=== PATIENT | male | born 1970 | race Caucasian/White ===

== ENCOUNTER 2024-09-07 06:20 | Emergency (ER) | payer BC, SELFPAY ==
[2024-09-07 06:22] VITALS: BP 143/78
[2024-09-07 07:00] VITALS: BP 128/76
[2024-09-07 07:01] VITALS: BMI 33.9
--- NOTE | 2024-09-07 07:01 | ED.GENMED ---
History of Present Illness
General
Chief Complaint: Swelling
Source: patient
Exam Limitations: none
Time Seen by Provider: 09/07/24 06:48
History of Present Illness
History of Present Illness:
See MDM
Past History
Past History
ED Past Medical History: Arrthythmia (afib), CVA (about 4 years ago after mini maze procedure for a fib. Had slurred speech and right sided weakness. No residual symptoms.), HTN, Hypercholesterolemia and Other (DVT)
ED Past Surgical History: Tonsilectomy
Social History
Tobacco: Non-smoker
Alcohol: None
Drug: None
Personal:
Living: with family
Employment: Employed
Family History
Family History: Other (adopted)
Phy Exam
Physical Exam
Physical Exam:
See MDM
Scores
Heart Failure Risk
Heart Failure Risk Score: Not Applicable
Sepsis
Sepsis Screening
Sepsis Assessment: Sepsis Ruled Out
Sepsis Screen
Sepsis Screen: Sepsis Ruled Out
Date: 09/07/24
Time: 08:16
Course
Orders/Labs/Results
Orders:
Orders
09/07/24 06:38
COVID-19 Antigen Urgent
Source: Nasal Swab
Influenza A+B Rapid Molecular Urgent
KRYSTAL Source: Nasal Swab
Specimen Description:
CXR2 [CR Chest - 2 Views ] Urgent
Comment:
Reason For Exam: cough
09/07/24 06:55
Complete Blood Count/With Diff Urgent
Comprehensive Metabolic Panel Urgent
NT-proBNP Urgent
Troponin I Urgent
Comment: ADD ON
09/07/24 06:58
Add On- LAB Urgent
Tests Added?: troponin
Dexamethasone Sod Phosphate [Decadron] 10 mg IV NOW STA
Ipratropium/Albuterol Sulfate [Duoneb] 3 ml INH R NOW STA
09/07/24 07:06
Electrocardiogram (*1) Urgent
Reason for Study: Shortness of Breath
EKG- Treatment ONCE
Abnormal Lab Results
09/07/24
06:55
WBC 4.4 L 10^3/uL
(4.8-10.8)
RBC 4.62 L 10^6/uL
(4.70-6.10)
MCV 96.3 H fL
(80.0-94.0)
MCH 32.3 H pg
(27.0-31.0)
RDW 15.0 H %
(11.5-14.5)
MPV 10.7 H fL
(7.4-10.4)
Absolute Lymphs (auto) 1.0 L 10^3/uL
(1.2-3.4)
Monocytes % 13.5 H %
(1.7-9.3)
Glucose 119 H mg/dl
(70-99)
Total Bilirubin 1.7 H mg/dl
(0.2-1.3)
09/07/24 06:55
09/07/24 06:55
Vital Signs
Initial and Last Documented VS:
Initial Vital Signs
Temp Pulse Resp BP Pulse Ox
99.7 F 93 24 143/78 96
09/07/24 06:22 09/07/24 06:22 09/07/24 06:22 09/07/24 06:22 09/07/24 06:22
Last Documented Vital Signs
Temp Pulse Resp BP Pulse Ox
98.9 F 88 21 143/78 96
09/07/24 07:06 09/07/24 07:06 09/07/24 07:06 09/07/24 06:22 09/07/24 07:06
MDM/Problems Addressed
Differential Diagnosis Includes:
HPI and MDM Narrative:
54-year-old male presenting for evaluation of persistent cough. Symptoms occurred 2 weeks ago and he finished a course of antibiotics. He seemed to get sick again and PCP believes this could be viral. However, patient is now noticing leg
swelling. He has very mild pitting edema to both legs but he states is somewhat chronic. There is no exertional component but he does seem to get worse when he lays flat. He does have evidence of bronchospasm. Will give DuoNeb and Decadron.
Given the edema and positional's, will obtain troponin BNP. Viral testing obtained. Will obtain chest x-ray.
Patient is on Coumadin so I do doubt DVT or PE
Patient states he is chronically in A-fib
His pitting edema is very mild. He recently has been sleeping in a recliner which could explain his edema
Physical exam
General: Well appearing and non-toxic
HEENT: protecting airway
Neck: appears supple
CV: No evidence of cyanosis. Irregular rhythm
Resp: No accessory muscle use. Bronchospasm noted. Lungs otherwise clear
Abd: Non-distended
Extremities: Varicose veins to both legs. Very mild pitting edema to bilateral lower extremities
Neuro: alert
Psych: Normal affect
Skin: Intact
Problems Addressed including Acute and Chronic Conditions affecting care:
1. Shortness of breath and bronchospasm
Acuity: acute
Prognosis: stable
Details: Will give DuoNeb and IV steroids. Will obtain chest x-ray
2. Leg edema
Acuity: acute
Prognosis: stable
Details: Appears to be somewhat chronic. Will obtain troponin and BNP
Updates
Patient found to have influenza. He is out of the Tamiflu window. He is feeling better after breathing treatment and steroids. Chest x-ray clear in regards to pulmonary edema and pneumonia. However, I did notice a enlarged cardiac silhouette.
This appears unchanged when compared to his prior chest x-ray. His BNP is mildly elevated but there is no comparison. Will place on cardiac callback tracker
Differential Diagnosis (but not limited to): CHF, pneumonia, viral syndrome
Testing considered: D-dimer but he is anticoagulated
Drug therapy (if applicable): OTC meds, please see d/c instruction regarding Rx drugs
Amount and/or Complexity of Data Reviewed
Clinical info obtained from: Patient
External data reviewed: N/A
Labs I independently reviewed (but not limited to): Troponin normal, elevated BNP
Radiology: X-ray independently reviewed: Chest x-ray clear
Pulse Ox: not hypoxic
EKG independently reviewed: A-fib, normal axis, no STEMI, right bundle branch block
Hat Block Maker: A-fib
Critical Care: N/A
Risk of Complication:
Social Determinants of health: Good social support
Discussed with other providers: N/A
Escalation of Care includes Admit/Obs: After being observed in the Emergency Department, pt stable for discharge.
Occasional wrong word or 'sound a like' substitutions may have occurred due to the inherent limitations of voice recognition software. Read the chart carefully and recognize, using context, where substitutions have occurred.
*Critical Care Note
Total Time (30-74mins, 75-104mins- exclusive of procedures): Not Applicable
ED Attending Note
-
Portions of this chart may have been created with voice recognition software.� Occasional wrong word or��sound alike� substitutions may have occurred due to the inherent limitations of voice recognition software.
Discharge Plan
Departure
Patient Disposition: Home (Routine Discharge)
Date of Disposition: 09/07/24
Time of Disposition: 07:52
Patient with high blood pressure during this ER visit?: Yes
Discharge Problem:
Influenza A
Instructions: *[facility] Heart Failure Instructions, BLOOD PRESSURE
Prescriptions:
New
prednisone 20 mg tablet
40 mg PO DAILY Qty: 10 0RF
albuterol sulfate 90 mcg/actuation HFA aerosol inhaler
2 puff inhalation Q6H PRN (Reason: shortness of breath or wheezing) Qty: 8.5 0RF
No Action
metoprolol succinate 50 MG tablet extended release 24 hr
75 mg PO BID
digoxin 0.125 MG tablet
0.125 mg PO DAILY
Acetaminophen
1,000 mg PO Q6H PRN (Reason: pain)
celecoxib 200 mg Capsule
200 mg PO DAILY
coQ10 (ubiquinol) [Qunol Reilly CoQ10] 100 mg Capsule
200 mg PO DAILY
Eliquis 5 mg Tablet
5 mg PO BID
Glucosamine Chondroitin 550-30-1 mg Capsule
1 cap PO DAILY
Referrals:
Jonh Palafox DO [Family Provider] -
Activity Restrictions/Additional Instructions:
Please return for any worsening symptoms.
You may return at any time if you have further concerns.
Please follow up with your doctor at the first available appointment, preferably this week.
You were placed on the cardiac callback tracker. Someone from their office should call you in the next few days. If you do not hear from them in the next few days, please give them a call.
Thank you for choosing [facility].
Interventions
Interventions:
*Risk Screen - Suicide Last Done: 09/07/24 06:22
*General Assessment Last Done: 09/07/24 07:06
*Neglect/Abuse Screening Last Done: 09/07/24 07:06
*ED- Fall Risk Assessment Last Done: 09/07/24 07:06
*ED COVID-19 Vaccine History Last Done: 09/07/24 07:06
ED- Cardiac Assessment Last Done: 09/07/24 07:06
ED- Pulmonary Assessment Last Done: 09/07/24 07:06
ED-Skin Assessment Last Done: 09/07/24 07:06
Discharge Date and Time
Print Language: KAZAKH
[2024-09-07] MEDS: DUONEB 3 ML INH (07:11)
[2024-09-07] MEDS: DECADRON 10 MG IV (07:11)
[2024-09-07 07:12] LABS: % Basophils 0.5 % (0-2); % Eosinophils 0.7 % (0-6); % Immature Granulocytes 0.2 % (0-0.5); % Lymphocytes 23.7 % (20.5-51.1); % Monocytes 13.5 % (1.7-9.3); % Neutrophils 61.4 % (42.2-75.2); Absolute Monocytes 0.6 10^3/uL (0.1-0.6); Absolute Neutrophils 2.7 10^3/uL (1.4-6.5); Hematocrit 44.5 % (39.0-52.0); Hemoglobin 14.9 g/dL (13.0-18.0); Mean Corp Hgb Conc. 33.5 g/dL (33.0-37.0); Mean Corpuscular Hgb 32.3 pg (27.0-31.0); Mean Corpuscular Volume 96.3 fL (80.0-94.0); Mean Platelet Volume 10.7 fL (7.4-10.4); Nucleated Red Blood Cells % 0 % (-); Platelet Count 148 10^3/uL (130-400); Red Blood Cell Count 4.62 10^6/uL (4.70-6.10); White Blood Cell Count 4.4 10^3/uL (4.8-10.8)
[2024-09-07 07:17] LABS: ALT (SGPT) 39 U/L (0-50); AST (SGOT) 29 U/L (17-59); Albumin 4.2 g/dl (3.5-5.0); Alkaline Phosphatase 77 U/L (38-126); Blood Urea Nitrogen 18 mg/dl (9-20); Calcium 9.3 mg/dl (8.4-10.2); Carbon Dioxide 27 mmol/L (22-30); Chloride 102 mmol/L (98-107); Estimated Creatinine Clearance > 125 ml/min; Glucose 119 mg/dl (70-99); Potassium 4.6 mmol/L (3.5-5.1); Sodium 135 mmol/L (135-145); Total Bilirubin 1.7 mg/dl (0.2-1.3); Total Protein 6.8 g/dl (6.3-8.2); eGFR > 60.00
[2024-09-07 07:18] LABS: COVID-19 Antigen Negative (Negative)
[2024-09-07 07:28] LABS: NT-proBNP 1200 pg/ml; Troponin I < 0.012 ng/ml
[2024-09-07 07:30] VITALS: BP 123/73
[2024-09-07 08:00] VITALS: BP 115/81
[2024-09-07 08:48] VITALS: BP 115/81
== END 2024-09-07 08:50 | disposition home or self-care (01) ==
LOC: EMR 06:20
PROVIDERS: Emergency Medicine; EMERGENCY PHYSICIAN Student in an Organized Health Care Education/Training Program; FAMILY PHYSICIAN Internal Medicine
DX: J10.1 Influenza due to other identified influenza virus with other respiratory manifestations (principal); I48.91 Unspecified atrial fibrillation; I10 Essential (primary) hypertension; E78.00 Pure hypercholesterolemia, unspecified; Z86.718 Personal history of other venous thrombosis and embolism; Z86.73 Personal history of transient ischemic attack (TIA), and cerebral infarction without residual deficits
CPT/HCPCS: 99283; 94640; 96374; 71046; 80053; 83880; 84484; 85025; 87502; 87811; 93005

== ENCOUNTER 2024-09-11 10:50 | Emergency (ER) | payer BC, SELFPAY ==
[2024-09-11 10:59] VITALS: BP 136/85
--- NOTE | 2024-09-11 11:43 | ED.GENMED ---
History of Present Illness
General
Chief Complaint: Cold/Flu/URI Symptoms
Source: patient
Exam Limitations: none
Time Seen by Provider: 09/11/24 11:40
Nursing documentation reviewed up to this point in time: agreed with
History of Present Illness
History of Present Illness:
54 yo male w h/o Arrhythmia (afib), CVA (about 4 years ago after mini maze procedure for a fib. Had slurred speech and right sided weakness. No residual symptoms.), HTN, Hypercholesterolemia and Other (DVT), diagnosed here 4 days ago with Flu. Had
negative CXR at that time. Is here for persistent significant cough. Denies fever, CP, SOB. Has finished [id number] days a week ago wit no improvement. Cough keeping him up at night
Past History
Past History
ED Past Medical History: Arrthythmia (afib), CVA (about 4 years ago after mini maze procedure for a fib. Had slurred speech and right sided weakness. No residual symptoms.), HTN, Hypercholesterolemia and Other (DVT)
ED Past Surgical History: Tonsilectomy
Social History
Tobacco: Non-smoker
Alcohol: None
Drug: None
Personal:
Living: with family
Employment: Employed
Family History
Family History: Other (adopted)
Review of Systems
Review of Systems
Allergies reviewed?: Yes
All Other Systems: ROS reviewed and negative except as documented in HPI and ROS
Constitutional: Denies fever
EENT: Denies sore throat
Respiratory: Reports cough (persistent paroxysms of cough)
Cardiac: Denies chest pain
ABD/GI: Denies abdominal pain, nausea, vomiting or diarrhea
Musculoskeletal: Reports no symptoms
Skin: Reports no symptoms
Neurological: Reports no symptoms
Phy Exam
Physical Exam
Physical Exam:
GENERAL: No acute distress. A&Ox3.
CONSTITUTIONAL: Afebrile.
RESPIRATORY: Regular respirations, nonlabored, lungs clear. Frequent intermittent coughing spells
CARDIOVASCULAR: Regular rate and rhythm, no murmurs, no rubs.
MUSCULOSKELETAL: Moves with ease. Well perfused.
SKIN: Warm, dry, pink
PSYCH: Normal mood and affect. Well kept, interactive and appropriate
NEUROLOGIC: Awake, alert and oriented. No focal neurological deficits
Course
Vital Signs
Initial and Last Documented VS:
Initial Vital Signs
Temp Pulse Resp BP Pulse Ox
98.3 F 73 20 136/85 98
09/11/24 10:59 09/11/24 10:59 09/11/24 10:59 09/11/24 10:59 09/11/24 10:59
Last Documented Vital Signs
Temp Pulse Resp BP Pulse Ox
98.3 F 73 20 136/85 98
09/11/24 10:59 09/11/24 10:59 09/11/24 10:59 09/11/24 10:59 09/11/24 10:59
MDM/Problems Addressed
Differential Diagnosis Includes:
PNA, URI
MDM/Problems Addressed:
54 yo male w h/o Arrhythmia (afib), CVA (about 4 years ago after mini maze procedure for a fib. Had slurred speech and right sided weakness. No residual symptoms.), HTN, Hypercholesterolemia and Other (DVT), diagnosed here 4 days ago with Flu. Had
negative CXR at that time. Is here for persistent significant cough. Denies fever, CP, SOB. Has finished [id number] days a week ago wit no improvement. Cough keeping him up at night
Neg CXR 4 days ago, no need to repeat
Will give Doxycycline for atypical PNA
*Critical Care Note
Total Time (30-74mins, 75-104mins- exclusive of procedures): Not Applicable
ED Attending Note
-
Portions of this chart may have been created with voice recognition software.� Occasional wrong word or��sound alike� substitutions may have occurred due to the inherent limitations of voice recognition software.
Discharge Plan
Departure
Patient Disposition: Home (Routine Discharge)
Date of Disposition: 09/11/24
Time of Disposition: 11:53
Patient with high blood pressure during this ER visit?: No
Condition: Good
Discharge Problem:
Cough in adult, Acute bronchitis
Instructions: Acute Bronchitis, Adult (DC), Cough in adults - ED discharge instructions
Prescriptions:
New
doxycycline hyclate 100 mg capsule
100 mg PO BID Qty: 20 0RF
No Action
metoprolol succinate 50 MG tablet extended release 24 hr
75 mg PO BID
digoxin 0.125 MG tablet
0.125 mg PO DAILY
Acetaminophen
1,000 mg PO Q6H PRN (Reason: pain)
celecoxib 200 mg Capsule
200 mg PO DAILY
coQ10 (ubiquinol) [Qunol Reilly CoQ10] 100 mg Capsule
200 mg PO DAILY
Eliquis 5 mg Tablet
5 mg PO BID
Glucosamine Chondroitin 550-30-1 mg Capsule
1 cap PO DAILY
prednisone 20 mg tablet
40 mg PO DAILY Qty: 10 0RF
albuterol sulfate 90 mcg/actuation HFA aerosol inhaler
2 puff inhalation Q6H PRN (Reason: shortness of breath or wheezing) Qty: 8.5 0RF
codeine-guaifenesin 10-100 mg/5 mL liquid
10 ml PO BID PRN (Reason: Cough) Qty: 200 0RF
Referrals:
Jonh Palafox, DO [Family Provider] - As needed
Activity Restrictions/Additional Instructions:
As we discussed, I am treating you for 'atypical pneumonia.'
Since you are already finished a regimen of Augmentin, I sent a prescription to your pharmacy for doxycycline to take 100 mg twice a day for 10 days.
Espinoza's mentholated cough drops may also help for the cough
Interventions
Interventions:
*Risk Screen - Suicide Last Done: 09/11/24 10:59
*General Assessment Last Done: 09/11/24 10:59
*Neglect/Abuse Screening Last Done: 09/11/24 10:59
*Nursing Disposition Last Done: 09/11/24 12:17
ED- Pulmonary Assessment Last Done: 09/11/24 12:13
Discharge Date and Time
Discharge Date/Time: 09/11/24 12:17
Print Language: AZERI
== END 2024-09-11 12:17 | disposition home or self-care (01) ==
LOC: EMR 10:50
PROVIDERS: EMERGENCY PHYSICIAN Emergency Medicine; FAMILY PHYSICIAN Internal Medicine
DX: J20.9 Acute bronchitis, unspecified (principal); E78.00 Pure hypercholesterolemia, unspecified; I10 Essential (primary) hypertension; I48.91 Unspecified atrial fibrillation; Z86.718 Personal history of other venous thrombosis and embolism; Z86.73 Personal history of transient ischemic attack (TIA), and cerebral infarction without residual deficits
CPT/HCPCS: 99283

== ENCOUNTER 2025-03-18 04:47 | Emergency (ER) | payer BC, SELFPAY ==
[2025-03-18 04:54] VITALS: BP 134/88
[2025-03-18 05:04] VITALS: BMI 33.5
[2025-03-18 05:27] LABS: COVID-19 Antigen Negative (Negative)
--- NOTE | 2025-03-18 06:13 | ED.GENMED ---
History of Present Illness
<Brandon Hart MD, Resident - Last Filed: 03/18/25 06:40>
General
Chief Complaint: Cold/Flu/URI Symptoms
Time Seen by Provider: 03/18/25 06:00
History of Present Illness
History of Present Illness:
Patient is a 55-year-old male who presents to the emergency department with cough, wheezing in lungs, and difficulty getting a full breath for the past 6 to 7 days. He has a history of atrial fibrillation and is anticoagulated on Eliquis. The
patient has been stable and contending with the symptoms for the past 7 days but unfortunately his appears to have contracted a very similar illness which has prompted him to present to the emergency department for further evaluation.
Currently has cough and wheezing in the lungs but he does not have any shortness of breath or dizziness. Patient denies any nausea vomiting or diarrhea. Patient is nontoxic-appearing.
Past History
<Brandon Hart MD, Resident - Last Filed: 03/18/25 06:40>
Past History
ED Past Medical History: Arrthythmia (afib), CVA (about 4 years ago after mini maze procedure for a fib. Had slurred speech and right sided weakness. No residual symptoms.), HTN, Hypercholesterolemia and Other (DVT)
ED Past Surgical History: Tonsilectomy
Social History
Tobacco: Non-smoker
Alcohol: None
Drug: None
Personal:
Living: with family
Employment: Employed
Family History
Family History: Other (adopted)
Review of Systems
<Brandon Hart MD, Resident - Last Filed: 03/18/25 06:40>
Review of Systems
Constitutional: Reports no symptoms
EENT: Reports no symptoms
Respiratory: Reports cough and other ( Wheezing)
Cardiac: Reports no symptoms
ABD/GI: Reports no symptoms
: Reports no symptoms
Musculoskeletal: Reports no symptoms
Skin: Reports no symptoms
Neurological: Reports no symptoms
Endocrine: Reports no symptoms
Hematologic/Lymphatic: Reports no symptoms
Psychiatric: Reports no symptoms
Phy Exam
<Brandon Hart MD, Resident - Last Filed: 03/18/25 06:40>
General Physical Exam
General Presentation: well appearing and no apparent distress
General age: appears stated age
General Skin: warm and dry
General Habitus: normal
General Mental: alert
Cardiovascular Exam
Cardiovascular Exam: regular rate/rhythm, no edema, no gallop, no JVD and no murmur
Pulmonary Exam
Pulmonary Exam: generalized wheezing ( wheezing bilaterally at the lung bases)
Cough: non productive cough
Musculoskeletal Exam
Musculoskeletal Exam: full ROM
Skin Exam
Skin Exam: normal color, warm/dry, no rash and no petechia
Psychiatric Exam
Psychiatric Exam: normal mood/affect
Sepsis
<Brandon Hart MD, Resident - Last Filed: 03/18/25 06:40>
Sepsis Screening
Sepsis Assessment: Sepsis Ruled Out
Sepsis Screen
Sepsis Screen: Sepsis Ruled Out
Date: 03/18/25
Time: 06:39
<Rosita Barnett, DO - Last Filed: 03/18/25 07:38>
Sepsis Screen
Sepsis Screen: Sepsis Ruled Out
Date: 03/18/25
Time: 07:33
Course
<Brandon Hart MD, Resident - Last Filed: 03/18/25 06:40>
Orders/Labs/Results
Orders:
Orders
03/18/25 05:02
Chest [CR Chest - 2 Views ] Urgent
Comment:
Reason For Exam: shortness
03/18/25 05:07
COVID-19 Antigen Urgent
Source: Nasal Swab
Influenza A+B Rapid Molecular Urgent
KRYSTAL Source: Nasal Swab
Specimen Description:
03/18/25 06:12
Benzonatate [Tessalon Perles] 200 mg PO NOW ONE
Ipratropium/Albuterol Sulfate [Duoneb] 3 ml INH R NOW ONE
Vital Signs
Initial and Last Documented VS:
Initial Vital Signs
Temp Pulse Resp BP Pulse Ox
97.8 F 66 22 134/88 97
03/18/25 04:54 03/18/25 04:54 03/18/25 04:54 03/18/25 04:54 03/18/25 04:54
Last Documented Vital Signs
Temp Pulse Resp BP Pulse Ox
97.8 F 66 22 134/88 97
03/18/25 04:54 03/18/25 04:54 03/18/25 04:54 03/18/25 04:54 03/18/25 06:16
<Rosita Barnett, DO - Last Filed: 03/18/25 07:38>
Orders/Labs/Results
Orders:
Orders
03/18/25 05:02
Chest [CR Chest - 2 Views ] Urgent
Comment:
Reason For Exam: shortness
03/18/25 05:07
COVID-19 Antigen Urgent
Source: Nasal Swab
Influenza A+B Rapid Molecular Urgent
KRYSTAL Source: Nasal Swab
Specimen Description:
03/18/25 06:12
Benzonatate [Tessalon Perles] 200 mg PO NOW ONE
Ipratropium/Albuterol Sulfate [Duoneb] 3 ml INH R NOW ONE
Vital Signs
Initial and Last Documented VS:
Initial Vital Signs
Temp Pulse Resp BP Pulse Ox
97.8 F 66 22 134/88 97
03/18/25 04:54 03/18/25 04:54 03/18/25 04:54 03/18/25 04:54 03/18/25 04:54
Last Documented Vital Signs
Temp Pulse Resp BP Pulse Ox
97.8 F 66 22 134/88 97
03/18/25 04:54 03/18/25 04:54 03/18/25 04:54 03/18/25 04:54 03/18/25 06:16
<Brandon Hart MD, Resident - Last Filed: 03/18/25 06:40>
*Pulse Oximetry
SaO2: 97
Oxygen Mode of Delivery: Room air
Patient hypoxic: no
*Critical Care Note
Total Time (30-74mins, 75-104mins- exclusive of procedures): 60
<Rosita Barnett DO - Last Filed: 03/18/25 07:38>
*Radiology
Radiology exam reviewed: preliminary read by ED provider (Chest x-ray is unremarkable. Unchanged changed from previous September 2024)
*Critical Care Note
Total Time (30-74mins, 75-104mins- exclusive of procedures): Not Applicable
<Brandon Hart MD, Resident - Last Filed: 03/18/25 06:40>
Update Note
Update Note:
Problem List:
nonproductive Cough
wheezing
chest tightness
Plan:
chest x-ray
DuoNeb
Carmen King
Differential Diagnoses:
viral upper respiratory infection
pharyngitis
pneumonia
asthma exacerbation
Radiology:
- chest x-ray conducted on 03/18/2025: Chest x-ray appears unchanged from prior x-ray conducted on 09/07/2024
EKG: not applicable
Labs: not applicable
Updates:
patient admits that he is presenting to the emergency department primarily due to concerns with his symptoms. He believes that he gave her the illness that he currently is slowly getting over. He endorses cough with wheezing but no
shortness of breath or chest tightness currently.
Will give patient DuoNeb and Tessalon Perles
auscultation after DuoNeb's are clear. No longer wheezing. Patient feels much better and is able to take full breaths.
Patient will be discharged with a albuterol ProAir rescue inhaler.
patient would like to be discharged. there are no barriers that would impede the patient from being safely discharged at the present time.
ED Attending Note
<Brandon Hart MD, Resident - Last Filed: 03/18/25 06:40>
-
Portions of this chart may have been created with voice recognition software.� Occasional wrong word or��sound alike� substitutions may have occurred due to the inherent limitations of voice recognition software.
<Rosita Barnett DO - Last Filed: 03/18/25 07:38>
ED Attending Note
Patient seen and examined by attending physician: Yes
I performed a history and physical exam of patient and discussed management with resident, I reviewed resident's note and agree with documented findings and plan of care.: Yes
ED Attending Note:
This is a 55-year-old gentleman with history of A-fib chronically maintained on Eliquis. He presents with 10-day history of cough. Cough is hacking, nonproductive. Worse at nighttime. His has similar symptoms and he believes he gave his
current URI symptoms. He has not had a fever. No shortness of breath nor chest pain. He feels like he is unable to take a full deep breath. No change in weight. Appetite has been good.
He is a non-smoker.
55-year-old overweight gentleman appears his stated age. Awake and alert, pleasant, appears in no acute distress.
HEENT: Facemask in place. No rhinorrhea.
Neck is supple, nontender. No JVD.
Heart is regular rate and rhythm.
Lungs have scant end inspiratory wheezing at bases otherwise clear to auscultation. No respiratory distress.
Abdomen is rotund, soft, nontender.
Extremities without clubbing or cyanosis no edema. Peripheral pulses are full and equal.
Concern for acute URI, either viral, COVID, influenza. Other consideration is pneumonia. CHF is unlikely.
Rapid COVID and influenza testing are negative.
Chest x-ray shows mild cardiomegaly otherwise clear lung teran. Similar and unchanged from previous chest x-ray September 2024.
I suspect viral URI with perhaps mild reactive airway disease. Will give DuoNeb nebulizer and if improvement in wheezing and cough will discharge to home with albuterol inhaler for as needed use along with Tessalon Perles.
Discussed importance of staying well-hydrated on a daily basis.
Prompt follow-up with PCP for recheck.
Return precautions discussed.
Discharge Plan
Departure
Patient Disposition: Home (Routine Discharge)
Date of Disposition: 03/18/25
Time of Disposition: 06:43
Patient with high blood pressure during this ER visit?: No
Discharge Problem:
Diffuse wheezing
Instructions: Viral Upper Respiratory Infection, Adult (DC), Fever, Adult (DC), Viral Syndrome (DC)
Prescriptions:
New
albuterol sulfate [Ventolin HFA] 90 mcg/actuation HFA aerosol inhaler
1 inh inhalation ONCE Qty: 6.7 0RF
benzonatate 200 mg capsule
200 mg PO BID PRN (Reason: Cough) Qty: 14 0RF
No Action
metoprolol succinate 50 MG tablet extended release 24 hr
75 mg PO BID
digoxin 0.125 MG tablet
0.125 mg PO DAILY
Acetaminophen
1,000 mg PO Q6H PRN (Reason: pain)
celecoxib 200 mg Capsule
200 mg PO DAILY
coQ10 (ubiquinol) [Qunol Reilly CoQ10] 100 mg Capsule
200 mg PO DAILY
Eliquis 5 mg Tablet
5 mg PO BID
Glucosamine Chondroitin 550-30-1 mg Capsule
1 cap PO DAILY
Referrals:
Jonh Palafox DO [Family Provider, Internal Medicine] - Follow up in 1 week
Interventions
Interventions:
*Risk Screen - Suicide Last Done: 03/18/25 04:54
*General Assessment Last Done: 03/18/25 05:05
*Neglect/Abuse Screening Last Done: 03/18/25 04:54
*ED- Fall Risk Assessment Last Done: 03/18/25 05:05
*ED COVID-19 Vaccine History Last Done: 03/18/25 05:05
*Nursing Disposition Last Done: 03/18/25 07:00
ED- Pulmonary Assessment Last Done: 03/18/25 05:25
Discharge Date and Time
Discharge Date/Time: 03/18/25 07:00
Print Language: TELUGU
[2025-03-18] MEDS: DUONEB 3 ML INH (06:16)
[2025-03-18] MEDS: TESSALON PERLES 200 MG PO (06:16)
== END 2025-03-18 07:00 | disposition home or self-care (01) ==
LOC: EMR 04:47
PROVIDERS: EMERGENCY PHYSICIAN Emergency Medicine; FAMILY PHYSICIAN Internal Medicine
DX: R06.2 Wheezing (principal); I11.9 Hypertensive heart disease without heart failure; I48.91 Unspecified atrial fibrillation; E78.00 Pure hypercholesterolemia, unspecified; Z79.01 Long term (current) use of anticoagulants; Z86.73 Personal history of transient ischemic attack (TIA), and cerebral infarction without residual deficits; Z86.718 Personal history of other venous thrombosis and embolism
CPT/HCPCS: 99284; 94640; 71046; 87502; 87811